=== PATIENT | male | born 1985 | race Hispanic/Latino ===

== ENCOUNTER 2025-05-28 13:24 | Emergency (ER) | payer OTHER ==
[2025-05-28] MEDS ORDERED: Ibuprofen 200 MG TAB ONE (15:17)
== END 2025-05-28 16:25 | disposition home or self-care (01) ==
LOC: ERS 13:24
DX: I80.01 Phlebitis and thrombophlebitis of superficial vessels of right lower extremity (principal); F17.210 Nicotine dependence, cigarettes, uncomplicated